=== PATIENT | male | born 1970 | race Caucasian/White ===

== ENCOUNTER 2019-07-17 15:19 | Emergency (ER) | payer OTHER, SELFPAY | END 2019-07-17 15:25 | disposition left against medical advice (07) | PROVIDERS: Emergency Provider Nurse Practitioner Family | DX: Z53.21 Procedure and treatment not carried out due to patient leaving prior to being seen by health care provider (principal) | CPT/HCPCS: 99199 ==

== ENCOUNTER 2019-07-17 15:29 | Emergency (ER) | payer OTHER, SELFPAY ==
--- NOTE | ~2019-07-17 | XR_ITS ---
EXAMINATION: XR ankle RT min 3V EXAM DATE: 07/17/2019 15:56 INDICATION: Initial encounter following injury, with pain of the right ankle. TECHNIQUE: Right ankle frontal, lateral and oblique projections obtained and reviewed. Comparison is made to prior examination from 04/21/2012. FINDINGS: The right ankle mortise appears intact. There are no acute fractures or dislocations iden tified. There is no subcutaneous gas. The soft tissue is unremarkable. There are no radiopaque fo reign bodies. IMPRESSION: No acute osseous findings. Reviewed, dictated and finalized at location A. IMPRESSION: No acute osseous findings.
[2019-07-17 15:32] VITALS: BP 113/91; PULSE 81; RESP 18; TEMP 36.3; O2SAT 100
[2019-07-17] MEDS: IBUPROFEN 400 MG TABLET 800 MG PO (16:19)
--- NOTE | 2019-07-17 16:33 | ED.LOWEXIN ---
HPI - Extremity Injury (Lower) General Chief Complaint: Extremity Injury, Lower Stated Complaint: fall Time Seen by Provider: 07/17/19 15:39 History of Present Illness HPI Narrative: Patient is a 49-year-old male who presents ER with right ankle pain. It is located over the lateral malleolus. He got his foot caught between toebox and struck as he was getting down from his truck and felt a pop and a twist. Has pain with ambulation. No numbness or tingling. Related Data Allergies Allergy/AdvReac Type Severity Reaction Status Date / Time No Known Allergies Allergy Verified 07/17/19 15:31 Review of Systems Musculoskeletal: Musculoskeletal: Reports arthralgias and Reports joint swelling Neurologic: Denies focal weakness and Denies numbness PMFSH Past Medical History Medical History (Updated 07/17/19 @ 16:36 by Ben Leonardo MD) Healthy adult male Surgical History Surgical History (Updated 07/17/19 @ 16:34 by Ben Leonardo MD) History of tonsillectomy Family History Family History (Updated 09/08/15 @ 23:19 by DOCTOR UNKNOWN) Mother Family history of obesity Family history of malignant neoplasm of breast in first degree relative Father Cerebrovascular accident, Onset Age: 46 Patient's father is , Onset Age: 46 Social History Social History Alcohol intake: current Gender identity (if verbalized by the patient): Female Exam Narrative: Exam Narrative: GENERAL: Well-appearing, well-nourished, and in no acute distress. HEAD: Normocephalic, atraumatic. HEART: Regular rate and rhythm. Normal peripheral pulses. EXTREMITIES: Focused exam of the right ankle shows swelling over the lateral malleolus and tenderness over the ATFL. Range of motion intact but guarded. No fifth metatarsal tenderness. Dorsalis pedis pulses intact. SKIN: Warm, dry, no rash. NEURO: No focal deficits. Alert and oriented x3. Course Vital Signs Vital signs: Vital Signs Temperature 97.4 F L 07/17/19 15:32 Pulse Rate 81 07/17/19 15:32 Respiratory Rate 18 07/17/19 15:32 Blood Pressure 113/91 H 07/17/19 15:32 Pulse Oximetry 100 07/17/19 15:32 Temperature 97.4 F L 07/17/19 15:32 Pulse Rate 81 07/17/19 15:32 Respiratory Rate 18 07/17/19 15:32 Blood Pressure 113/91 H 07/17/19 15:32 Pulse Oximetry 100 07/17/19 15:32 MDM - Extremity Injury (Lower) Imaging Data Radiologist's impression: ITS Impressions Ankle X-Ray 07/17/19 16:02 IMPRESSION: No acute osseous findings. Discharge Plan Discharge Clinical Impression: Ankle sprain and strain Patient Disposition: Home, Self-Care Condition: Stable Instructions: Ankle Sprain (ED), R.I.C.E. Treatment (ED) Additional Instructions: Return to the ER if you suffer additional injury, you have chest pain or shortness of breath, you have additional concerns. Acquire a stirrup splint from a pharmacy to help with any potential twisting of your ankle. Take ibuprofen for pain. Prescriptions: New ibuprofen 800 mg tablet 800 mg PO TID Qty: 20 RF: 0 Follow-up/Referrals: PHYSICIAN,CONSTRUCTION LINEMAN [Primary Care Provider] - Hugo Dye MD [Physician] -
[2019-07-17 16:46] VITALS: BP 114/70; PULSE 64; RESP 14; O2SAT 99
== END 2019-07-17 16:46 | disposition home or self-care (01) ==
PROVIDERS: Emergency Provider Emergency Medicine
DX: S93.401A Sprain of unspecified ligament of right ankle, initial encounter (principal); S96.911A Strain of unspecified muscle and tendon at ankle and foot level, right foot, initial encounter; X50.9XXA Other and unspecified overexertion or strenuous movements or postures, initial encounter
CPT/HCPCS: 73610; 99283; A9270